=== PATIENT | male | born 1935 | race Caucasian/White ===

== ENCOUNTER 2018-02-07 12:05 | Emergency (ER) | payer MEDICARE, OTHER ==
[~2018-02-07] VITALS: Ht 170.2 cm; Wt 76.8 kg
[2018-02-07] MEDS ORDERED: ATOR20TA86 PO (12:30)
[2018-02-07] MEDS ORDERED: VALS40TA4 PO (12:30)
[2018-02-07] MEDS ORDERED: POVIDONE-IODINE 10% 15 ML SOLUTION UD TP ONE (13:15)
[2018-02-07] MEDS ORDERED: BACITRACIN 0.9 GM PACKET OINTMENT TP ONE (13:15)
[2018-02-07] MEDS ORDERED: LIDOCAINE/PF 1% 5 ML VIAL INJ ONE (13:15)
[2018-02-07 14:30] VITALS: BP 141/80
== END 2018-02-07 14:48 | disposition home or self-care (01) ==
LOC: EMS 12:09
DX: S62.630B Displaced fracture of distal phalanx of right index finger, initial encounter for open fracture (principal); S61.211A Laceration without foreign body of left index finger without damage to nail, initial encounter; I11.9 Hypertensive heart disease without heart failure; E78.00 Pure hypercholesterolemia, unspecified; Z95.1 Presence of aortocoronary bypass graft; Z88.5 Allergy status to narcotic agent; W45.8XXA Other foreign body or object entering through skin, initial encounter; Y93.H2 Activity, gardening and landscaping; Y92.89 Other specified places as the place of occurrence of the external cause; Y99.8 Other external cause status
CPT/HCPCS: 12002; 29130; 73130; 99284; J3490